=== PATIENT | female | born 1995 | race African-American/Black ===

== ENCOUNTER 2017-05-07 15:40 | Emergency (ER) | payer OTHER ==
[~2017-05-07] VITALS: Ht 162.6 cm; Wt 75.9 kg
[2017-05-07] MEDS ORDERED: ACETAMINOPHEN/CODEINE 300-30 MG TABLET PO ONE (16:15)
[2017-05-07] MEDS ORDERED: LIDOCAINE HCL 1% 10 ML VIAL INJ ONE (16:15)
[2017-05-07 17:26] VITALS: BP 119/79
== END 2017-05-07 17:31 | disposition home or self-care (01) ==
LOC: EMS 15:46
DX: S01.511A Laceration without foreign body of lip, initial encounter (principal); X58.XXXA Exposure to other specified factors, initial encounter; Y93.89 Activity, other specified; Y92.89 Other specified places as the place of occurrence of the external cause; Y99.8 Other external cause status
CPT/HCPCS: 12011; 99283; J3490

== ENCOUNTER 2017-05-12 15:50 | Emergency (ER) | payer OTHER ==
[~2017-05-12] VITALS: Ht 162.6 cm; Wt 70.9 kg
[2017-05-12 15:58] VITALS: BP 101/72
[2017-05-12] MEDS ORDERED: IBUP-2077 PO (16:02)
== END 2017-05-12 16:54 | disposition home or self-care (01) ==
LOC: EMS 15:53
DX: Z48.02 Encounter for removal of sutures (principal)
CPT/HCPCS: 99281